=== PATIENT | female | born 1995 | race Caucasian/White ===

== ENCOUNTER 2018-10-10 21:44 | Emergency (ER) | payer BC, SELFPAY ==
[2018-10-10 21:47] VITALS: BP 137/92; PULSE 117; RESP 20; TEMP 36.6; O2SAT 98; BMI 25.5
--- NOTE | 2018-10-10 22:17 | ED.DCSUM_ITS ---
- ER Visit Summary Date of Service: 10/10/18 Chief Complaint: Nausea and vomiting History of Present Illness: The patient is a 23 F with history of IBS who presents for 1 month of nausea and vomiting, early satiety and weight loss. Patient states she has lost 10 pounds in the last week. The last month she has had decreased appetite and early satiety, only able to eat a few bites of certain foods at a time. She is having nausea and vomiting today. She has not had a bowel movement in several days. Last week she tried milk of magnesia with resulting diarrhea but otherwise no stool since then. No urinary symptoms. Patient has chills and sweats but no fever. She has had fatigue and generalized weakness. Patient has chronic intermittent left lower quadrant abdominal pain, worse today. She has had a colonoscopy and a sigmoidoscopy in the last couple years that were negative. She has had issues with IBS for 5 years but states that her symptoms for the last month are completely different.. She has an appointment with her primary care doctor tomorrow. Physical Examination: Vital signs: afebrile, hemodynamically stable, no hypoxia on room air General: well nourished, well developed, in no distress Skin: warm, dry, no rash, no pallor HEENT: normocephalic and atraumatic; PERRL, EOMI, moist mucous membranes Cardiovascular: Tachycardic rate and rhythm without murmurs, no peripheral edema, 2+ pulses all distal extremities Respiratory: No increased work of breathing, lungs are clear to auscultation bilaterally, no rales, rhonchi or wheezing Abdominal: Abdomen is soft, left lower quadrant is tender with normoactive bowel sounds, no guarding or rebound, no masses MSK: Moves all extremities, no deformities, normal strength Neuro: Awake and alert, oriented ?4. No facial droop, sensation and motor function intact and symmetric Test Results: Abnormal Lab Results 10/10/18 10/10/18 10/10/18 22:20 22:20 22:20 WBC 9.2 RBC 4.65 Hgb 14.2 Hct 41.1 MCV 88.4 MCH 30.5 MCHC 34.5 RDW 12.5 RDW Differential 40.3 Plt Count 282 MPV 11.3 Immature Gran % (Auto) 0.100 Neut % (Auto) 57.2 Lymph % (Auto) 33.9 [place] % (Auto) 7.5 Eos % (Auto) 1.0 Baso % (Auto) 0.3 Absolute Neuts (auto) 5.3 Absolute Lymphs (auto) 3.12 Total Counted Not Reportable Sodium 139 Potassium 4.0 Chloride 108 H Carbon Dioxide 25.0 Anion Gap 6 BUN 7 Creatinine 1.05 H Estim Creat Clear Calc 87.08 Est GFR (MDRD) Af Amer 83 Est GFR (MDRD) Non-Af 69 BUN/Creatinine Ratio 6.7 L Glucose 88 Lactic Acid Calcium 8.5 Total Bilirubin 0.50 AST 28 ALT 33 Alkaline Phosphatase 68 Total Protein 7.6 Albumin 3.5 Globulin 4.1 Albumin/Globulin Ratio 0.9 Lipase 56 L Serum , Qual NEGATIVE 10/10/18 22:32 WBC RBC Hgb Hct MCV MCH MCHC RDW RDW Differential Plt Count MPV Immature Gran % (Auto) Neut % (Auto) Lymph % (Auto) [place] % (Auto) Eos % (Auto) Baso % (Auto) Absolute Neuts (auto) Absolute Lymphs (auto) Total Counted Sodium Potassium Chloride Carbon Dioxide Anion Gap BUN Creatinine Estim Creat Clear Calc Est GFR (MDRD) Af Amer Est GFR (MDRD) Non-Af BUN/Creatinine Ratio Glucose Lactic Acid 0.6 Calcium Total Bilirubin AST ALT Alkaline Phosphatase Total Protein Albumin Globulin Albumin/Globulin Ratio Lipase Serum , Qual Emergency Department Course and Treatment: Patient presents with symptoms for 1 month and has an appointment with her primary care doctor tomorrow for these complaints, however she presents for evaluation tonight due to concern for the rapid weight loss, fatigue, weakness, vomiting and general malaise. She does present tachycardic and has left lower quadrant abdominal tenderness. Patient had no electrolyte derangements, hepatic derangements, renal dysfunction, leukocytosis, any abnormalities on her CBC differential, or significant anemia, and her lactate was normal. negative. Patient received IV fluids, morphine and Zofran for symptomatic relief, and she had improvement with medication. Heart rate on reevaluation was 92. CT of the abdomen and pelvis was performed with p.o. and IV contrast. Final disposition is pending results of the CT scan and will be followed up by the night physician. Patient was updated on the plan. She did mention at the time of update that she forgot to mention her history of babesiosis which was treated in 2017. She had similar symptoms then although she states her current symptoms are much milder than her symptoms in 2017. We discussed that this is testing that I cannot do in the emergency department. Patient is to follow-up with her doctor about her concerns tomorrow at her appointment, and she agreed with this plan. Treatment Plan: [] Disposition: [] Impression: Vomiting illness, left lower quadrant abdominal pain, history of IBS This note was generated with [employer] dictation software. It may contain incorrect words, spelling, and punctuation that were not noted in review of the chart prior to signing ED Disposition - Plan for ED Patient: Chief Complaint: Nausea/Vomiting Referrals: [facility] Doctor,Out of [Primary Care Provider] -
[2018-10-10] MEDS: 0.9% Normal Saline 1,000 ML 1000 ML IV (22:29)
[2018-10-10 22:30] LABS: Absolute Lymphocyte Count 3.12 X10^3/ul (0.83-4.51); Absolute Neutrophil Count 5.3 X10^3/uL (2.0-7.7); Basophil# 0.03 X10^3/uL; Basophil% 0.3 % (0-1); Eosinophil# 0.09 X10^3/uL; Hematocrit 41.1 % (37-47); Hemoglobin 14.2 g/dl (12.0-15.0); Lymphocyte # 3.12 X10^3/ul (4.0); Lymphocyte % 33.9 % (19-41); Mean Corp Hgb Conc 34.5 g/gl (32-36); Mean Corpuscular Hgb 30.5 pg (27.0-32.0); Mean Corpuscular Volume 88.4 fL (81-99); Mean Platelet Vol. 11.3 fl (6.2-12.0); Monocyte# 0.69 X10^3/uL; Monocyte% 7.5 % (0-10); Neutrophil # 5.25 X10^3/uL (2.7-7.7); Neutrophil % 57.2 % (47-70); POSITIVE COUNT NO; POSITIVE DIFFERENTIAL NO; POSITIVE MORPHOLOGY NO; Platelet Count 282 K/mm3 (150-450); RBC Distribution Width CV 12.5 % (11.6-14.6); RBC Distribution Width SD 40.3 fl (35.1-43.9); Red Blood Count 4.65 M/mm3 (4.2-5.4); White Blood Count 9.2 K/mm3 (4.4-11.0)
[2018-10-10] MEDS: Ondansetron 4 MG/2 ML Vial IV (22:30)
[2018-10-10] MEDS: Morphine 4 MG/ML Syringe IV (22:30)
[2018-10-10 22:47] LABS: ALB/GLOB Ratio 0.9 RATIO (0.9-2.4); AST(SGOT) 28 U/L (15-37); Alanine Aminotransfer ALT/SGPT 33 U/L (13-56); Albumin, Serum 3.5 g/dL (3.2-5.0); Alkaline Phosphatase 68 U/L (45-117); Anion Gap 6 (5-15); BUN 7 mg/dL (7-18); BUN/Creat Ratio 6.7 RATIO (10-20); Calcium,Total 8.5 mg/dL (8.5-10.1); Chloride 108 mmol/L (98-107); Creatinine, Serum 1.05 mg/dL (0.55-1.02); EST Glomerular Filtration Rate 69 mL/min (>60); Est Glom Filt Rate - Afr Amer 83 mL/min (>60); Estimated Creatinine Clearance 87.08 ml/min; Globulin 4.1 g/dL (2.2-4.2); Glucose 88 mg/dL (74-106); Lipase 56 U/L (73-393); Pregnancy, Serum, hCG Quali. NEGATIVE Negative (0-9 Nonpreg); Protein, Total 7.6 g/dL (6.4-8.2); Sodium Level 139 mmol/L (136-145)
[2018-10-10 23:03] LABS: Lactic Acid 0.6 mmol/L (0.4-2.0)
[2018-10-11 00:20] VITALS: RESP 16
--- NOTE | 2018-10-11 01:08 | DCINST.ED_ITS ---
ED Disposition - Plan for ED Patient: Disposition: Home or Assisted Living Chief Complaint: Nausea/Vomiting Instructions: ED Abdominal Pain Unkn Cause, Treating Constipation Referrals: [facility] Doctor,Out of [Primary Care Provider] - 3-5 Days
[2018-10-11] MEDS: Electrolyte Solution/Peg's 4000 ML 2000 ML PO (01:19)
[2018-10-11 01:21] VITALS: BP 132/79; PULSE 97; RESP 16; O2SAT 99
--- NOTE | 2018-10-11 22:14 | CT_ITS ---
HISTORY: NAUSEA,VOMTING AND ABDOMINAL CRAMPING,ELEVATED BP,PREG TEST WAS NEGATIVE TECHNIQUE: Helically acquired images were obtained of the abdomen and pelvis following oral and IV contrast. IV Contrast dosage and agent: 100 cc Isovue-300 contrast Oral contrast: Yes. COMPARISON: None. FINDINGS: LOWER CHEST: Lung bases are clear. Pectus excavatum deformity. The liver, spleen, pancreas, gallbladder, and biliary system show no CT abnormality. Both kidneys are normal in position. Bilateral renal excretion of contrast without evidence of hydronephrosis, pyelonephritis, or suspicious renal lesion. Adrenal glands are not enlarged. Abdominal aorta and IVC are unremarkable. No ascites or retroperitoneal lymphadenopathy. GI track: No obstruction. The cecum is low in position. Normal appendix. Pelvis: Normal uterine size. No free fluid or lymphadenopathy. Osseous structures: No fracture or suspicious bony lesion. CT/Abdomen/Pelvis WITH Contrast IMPRESSION: 1. Essentially negative exam. No appendicitis or other acute disease. 2. Pectus excavatum deformity. Individualized dose optimization techniques were used for this CT. at 0051 Reported and signed by: Ant Gore MD Electronically Signed: Ant Gore, at 0:49 EST Tel , Service support ,
== END 2018-10-11 01:32 | disposition home or self-care (01) ==
PROVIDERS: Emergency Provider Emergency Medicine
DX: R11.2 Nausea with vomiting, unspecified (principal); R10.32 Left lower quadrant pain; K58.9 Irritable bowel syndrome, unspecified; K59.00 Constipation, unspecified; R53.83 Other fatigue; R53.1 Weakness; F90.9 Attention-deficit hyperactivity disorder, unspecified type; Z86.19 Personal history of other infectious and parasitic diseases; Z79.899 Other long term (current) drug therapy
CPT/HCPCS: 74177; 80053; 83605; 83690; 84703; 85025; 96361; 96374; 96375; 99284; J7030; Q9967; A4216; J2405